=== PATIENT | female | born 1970 | race African-American/Black ===

== ENCOUNTER 2020-10-08 06:00 | Day surgery (SDC) | payer OTHER ==
[~2020-10-08] VITALS: Ht 162.6 cm; Wt 75.3 kg
[2020-10-08] VITALS (8 sets, daily range): BP systolic 89–132; BP diastolic 67–87
[~2020-10-08 06:00] MED LIST: ATOR10TA69 PO; ESCI10TA PO; FERR-82 PO; LISI1TAB32 PO; PANT40TA54 PO
[2020-10-08] MEDS ORDERED: SODIUM CHLORIDE 0.9% 1000ML 1,000 ML IV ONE (06:18)
[2020-10-08] MEDS ORDERED: LIDOCAINE HCL 1% 20 ML VIAL ONE (06:53)
[2020-10-08] MEDS ORDERED: PROPOFOL 10 MG/ML 20ML VIAL IV ONE ×2 (06:53→07:25)
[2020-10-08] MEDS ORDERED: METHYLENE BLUE 5 MG/ML AMP ONE (07:10)
[2020-10-08] MEDS ORDERED: ONDANSETRON HCL 4 MG/2 ML VIAL ONE (07:43)
== END 2020-10-08 08:10 | disposition home or self-care (01) ==
LOC: ENDO 06:00 → DAH 06:00 → ENDO 08:10
PROVIDERS: ATTEND Internal Medicine Gastroenterology
DX: K59.00 Constipation, unspecified (principal); Z20.828 Contact with and (suspected) exposure to other viral communicable diseases; I10 Essential (primary) hypertension; E78.5 Hyperlipidemia, unspecified; K21.9 Gastro-esophageal reflux disease without esophagitis; Z79.899 Other long term (current) drug therapy; Z88.8 Allergy status to other drugs, medicaments and biological substances; Z98.890 Other specified postprocedural states; Z90.710 Acquired absence of both cervix and uterus; Z86.19 Personal history of other infectious and parasitic diseases; Z72.89 Other problems related to lifestyle; Z90.49 Acquired absence of other specified parts of digestive tract; Z98.891 History of uterine scar from previous surgery
CPT/HCPCS: 45378; 87426; C9803; J2405; J2704 ×2; J7030; Q9968; U0003; G0121